=== PATIENT | female | born 1955 | race Caucasian/White ===

== ENCOUNTER 2020-06-17 22:07 | Inpatient (IN) | payer OTHER ==
[~2020-06-17] VITALS: Ht 167.6 cm; Wt 80.5 kg
[2020-06-17 23:17] LABS: Basophils # (auto) 0 10 ^3/uL (0-0.2); Eosinophils # (auto) 0.1 10 ^3/uL (0-0.8); Eosinophils % (auto) 0.5 % (0.0-7.0); Hematocrit 36.8 % (36.0-46.0); Hemoglobin 12.2 g/dL (12.2-16.2); Lymphocytes # (auto) 0.7 10 ^3/uL (0.4-5.4); Lymphocytes % (auto) 5.3 % (10.0-50.0); Mean Corpuscular Hemoglobin 28.9 pg (28.0-32.0); Mean Corpuscular Volume 87.4 fL (80.0-100.0); Monocytes # (auto) 1.1 10 ^3/uL (0-1.3); Monocytes % (auto) 8.2 % (0.0-12.0); Neutrophils # (auto) 11.4 10 ^3/uL (1.6-8.6); Nucleated Red Blood Cells % 0.3 %; Platelet Count (auto) 418 10^3/uL (140-450); Red Blood Cells 4.21 10^6/uL (4.0-5.20); Red Cell Distribution Width 14.4 % (11.8-14.3); White Blood Cell 13.3 10^3/uL (4.4-10.8)
[2020-06-17 23:36] LABS: Alanine Aminotransferase 15 U/L (13-56); Albumin 2.1 g/dL (3.4-5.0); Anion Gap 5 (5-15); Aspartate Aminotransferase 15 U/L (15-37); BUN/Creatinine Ratio 10.1; Blood Urea Nitrogen 8 mg/dL (7-18); Calcium 8.3 mg/dL (8.5-10.1); Carbon Dioxide 28 mmol/L (21-32); Chloride 101 mmol/L (98-107); GFR African American 94 mL/min; GFR Non-African American 78 mL/min; Glucose 105 mg/dL (74-106); INR 1.09 (0.9-1.15); Magnesium 2.2 mg/dL (1.6-2.6); Partial Thromboplastin Time 25.9 sec (23.0-31.2); Potassium 3.8 mmol/L (3.5-5.1); Sodium 134 mmol/L (136-145)
[2020-06-17 23:41] LABS: Alkaline Phosphatase 84 U/L (45-117); Bilirubin, Total 0.3 mg/dL (0.2-1.0)
[2020-06-18] MEDS ORDERED: DexAMETHasone SOD PHOS 10MG/1ML VIAL INJ IV ONE (00:15)
[2020-06-18] MEDS ORDERED: AZITHROMYCIN 500MG/ 250ML 250 ML IV ONE (00:15)
[2020-06-18 02:27] LABS: Urine Bacteria FEW /hpf (None Seen); Urine Blood Negative /uL (Negative); Urine Specific Gravity 1.029 (1.001-1.035); Urine WBC 1 /hpf (0 - 5)
[2020-06-18] MEDS ORDERED: ACETAMINOPHEN 325 MG TAB PO PRN (02:30)
[2020-06-18] MEDS ORDERED: ONDANSETRON HCL 4 MG/2 ML VIAL IV PRN (02:30)
[2020-06-18] MEDS ORDERED: MORPHINE SULF INJ 2 MG/ML SYRINGE 1ML IV PRN (02:30)
[2020-06-18] MEDS ORDERED: TEMAZEPAM 15 MG CAP PO PRN (02:30)
[2020-06-18] MEDS ORDERED: NITROGLYCERIN 0.4 MG SL TAB SL PRN (02:30)
[2020-06-18 04:34] LABS: CRP High Sensitivity 16.3 mg/dL (< 0.3)
[2020-06-18] MEDS: DexAMETHasone SOD PHOS 10MG/1ML VIAL INJ IV SCH (07:56)
[2020-06-18] MEDS: ASCORBIC ACID 1,000 MG TAB PO SCH (07:57)
[2020-06-18] MEDS: ZINC SULFATE 220mg CAP or TAB PO SCH (07:57)
[2020-06-18] MEDS: FAMOTIDINE 20 MG TAB PO SCH ×2 (07:57→23:00)
[2020-06-18] MEDS: CHOLECALCIFEROL (VITD3) 2,000 UNIT CAP PO SCH (07:57)
[2020-06-18] MEDS: ENOXAPARIN SOD 40 MG/0.4 ML SYRINGE SC SCH ×2 (07:57→23:00)
[2020-06-18] MEDS ORDERED: AZITHROMYCIN 500MG/ 250ML 250 ML IV SCH (10:00)
[2020-06-18] MEDS ORDERED: REMDESIVIR PER PHARMACY 0 ML IV SCH (11:15)
[2020-06-18] MEDS ORDERED: IVERMECTIN 3 MG TAB PO ONE (14:33)
[2020-06-18] MEDS ORDERED: ERGOCALCIFEROL 50,000 UNIT(1.25MG) CAP PO SCH (14:45)
[2020-06-18] MEDS ORDERED: CEFTRIAXONE SODIUM 2 GM in D5W 5% 50 ML IV ONE (14:45)
[2020-06-18] MEDS ORDERED: POTASSIUM CHL 10 Meq TABLET PO ONE (14:45)
[2020-06-18] MEDS ORDERED: FUROSEMIDE 40 MG/4 ML VIAL IV ONE (15:00)
[2020-06-18] MEDS ORDERED: REMDESIVIR 200 MG in NS 210ml LOADING DOSE ADULT IV ONE (15:00)
[2020-06-18 16:05] VITALS: BP 128/76
[2020-06-18 16:20] VITALS: BP 112/84
[2020-06-18 17:17] VITALS: BP 136/88
[2020-06-18 21:22] VITALS: BP 125/94
[2020-06-18] MEDS: BUDESONIDE (INHALATION) 180 MCG IH IN SCH (22:00)
[2020-06-19] VITALS: BP 125/94
[2020-06-19 06:47] LABS: Basophils # (auto) 0.2 10 ^3/uL (0-0.2); Basophils % (auto) 0.8 % (0.0-2.0); Eosinophils # (auto) 0 10 ^3/uL (0-0.8); Hematocrit 37.9 % (36.0-46.0); Hemoglobin 12.6 g/dL (12.2-16.2); Lymphocytes % (auto) 4.6 % (10.0-50.0); Mean Corpuscular Hemoglobin 29.1 pg (28.0-32.0); Mean Corpuscular Hgb Conc. 33.3 g/dL (32.0-36.0); Mean Corpuscular Volume 87.5 fL (80.0-100.0); Monocytes % (auto) 8.8 % (0.0-12.0); Neutrophils # (auto) 19.3 10 ^3/uL (1.6-8.6); Neutrophils % (auto) 85.8 % (37.0-80.0); Nucleated Red Blood Cells % 0.2 %; Platelet Count (auto) 438 10^3/uL (140-450); Red Blood Cells 4.33 10^6/uL (4.0-5.20); Red Cell Distribution Width 14.8 % (11.8-14.3); White Blood Cell 22.5 10^3/uL (4.4-10.8)
[2020-06-19 06:54] LABS: Calcium 8.8 mg/dL (8.5-10.1); Magnesium 2.6 mg/dL (1.6-2.6); Potassium 4.1 mmol/L (3.5-5.1)
[2020-06-19] MEDS: BUDESONIDE (INHALATION) 180 MCG IH IN SCH ×2 (06:58→22:00)
[2020-06-19 07:12] LABS: Albumin 2.2 g/dL (3.4-5.0); Bilirubin, Total 0.2 mg/dL (0.2-1.0); CRP High Sensitivity 16.7 mg/dL (< 0.3); Total Protein 7.7 g/dL (6.4-8.2)
[2020-06-19 08:00] VITALS: BP 131/77
[2020-06-19] MEDS ORDERED: IVERMECTIN 3 MG TAB PO SCH (10:00)
[2020-06-19] MEDS: cefTRIAXone 1GM/50ML D5W 50 ML IV SCH (10:07)
[2020-06-19] MEDS: FUROSEMIDE 40 MG/4 ML VIAL IV SCH (10:07)
[2020-06-19] MEDS: DexAMETHasone SOD PHOS 10MG/1ML VIAL INJ IV SCH (10:07)
[2020-06-19] MEDS: FAMOTIDINE 20 MG TAB PO SCH ×2 (10:08→21:23)
[2020-06-19] MEDS: POTASSIUM CHL 10 Meq TABLET PO SCH (10:08)
[2020-06-19] MEDS: ZINC SULFATE 220mg CAP or TAB PO SCH (10:08)
[2020-06-19] MEDS: CHOLECALCIFEROL (VITD3) 2,000 UNIT CAP PO SCH (10:09)
[2020-06-19] MEDS: ENOXAPARIN SOD 40 MG/0.4 ML SYRINGE SC SCH ×2 (10:09→21:23)
[2020-06-19] MEDS: ASCORBIC ACID 1,000 MG TAB PO SCH (10:09)
[2020-06-19] MEDS: AZITHROMYCIN 500MG/ 250ML 250 ML IV SCH (11:00)
[2020-06-19] MEDS: REMDESIVIR 100mg 100 MG in SODIUM CHL 0.9% 230 ML IV SCH (15:15)
[2020-06-19 16:00] VITALS: BP 118/76
[2020-06-20] VITALS: BP_SYST 134; BP_SYST 136; BP_DIAS 73; BP_DIAS 82
[2020-06-20 05:44] LABS: Basophils # (auto) 0 10 ^3/uL (0-0.2); Eosinophils # (auto) 0 10 ^3/uL (0-0.8); Eosinophils % (auto) 0.2 % (0.0-7.0); Hematocrit 37.2 % (36.0-46.0); Hemoglobin 12.2 g/dL (12.2-16.2); Lymphocytes # (auto) 1.1 10 ^3/uL (0.4-5.4); Lymphocytes % (auto) 7.2 % (10.0-50.0); Mean Corpuscular Hemoglobin 29.1 pg (28.0-32.0); Mean Corpuscular Hgb Conc. 32.9 g/dL (32.0-36.0); Mean Corpuscular Volume 88.5 fL (80.0-100.0); Monocytes # (auto) 1.4 10 ^3/uL (0-1.3); Neutrophils # (auto) 12.6 10 ^3/uL (1.6-8.6); Neutrophils % (auto) 83.6 % (37.0-80.0); Nucleated Red Blood Cells % 0.1 %; Platelet Count (auto) 403 10^3/uL (140-450); Red Cell Distribution Width 15.1 % (11.8-14.3); White Blood Cell 15.1 10^3/uL (4.4-10.8)
[2020-06-20 08:25] VITALS: BP 129/90
[2020-06-20] MEDS: BUDESONIDE (INHALATION) 180 MCG IH IN SCH ×2 (09:35→20:58)
[2020-06-20] MEDS: AZITHROMYCIN 500MG/ 250ML 250 ML IV SCH (10:00)
[2020-06-20] MEDS: cefTRIAXone 1GM/50ML D5W 50 ML IV SCH (10:21)
[2020-06-20] MEDS: ZINC SULFATE 220mg CAP or TAB PO SCH (10:21)
[2020-06-20] MEDS: FUROSEMIDE 40 MG/4 ML VIAL IV SCH (10:21)
[2020-06-20] MEDS: DexAMETHasone SOD PHOS 10MG/1ML VIAL INJ IV SCH (10:21)
[2020-06-20] MEDS: ENOXAPARIN SOD 40 MG/0.4 ML SYRINGE SC SCH ×2 (10:22→21:08)
[2020-06-20] MEDS: FAMOTIDINE 20 MG TAB PO SCH ×2 (10:22→21:07)
[2020-06-20] MEDS: CHOLECALCIFEROL (VITD3) 2,000 UNIT CAP PO SCH (10:22)
[2020-06-20] MEDS: ASCORBIC ACID 1,000 MG TAB PO SCH (10:22)
[2020-06-20] MEDS: POTASSIUM CHL 10 Meq TABLET PO SCH (10:22)
[2020-06-20] MEDS: REMDESIVIR 100mg 100 MG in SODIUM CHL 0.9% 230 ML IV SCH ×2 (15:36→16:25)
[2020-06-20 15:42] VITALS: BP 119/78
[2020-06-20] MEDS: ALBUTEROL SULF HFA 90MCG INH 200DOSE IN PRN (20:58)
[2020-06-20 22:00] VITALS: BP 134/73
[2020-06-21] VITALS: BP 134/73
[2020-06-21 06:10] VITALS: BP 134/73
[2020-06-21 06:38] LABS: Basophils # (auto) 0 10 ^3/uL (0-0.2); Basophils % (auto) 0.3 % (0.0-2.0); Eosinophils # (auto) 0 10 ^3/uL (0-0.8); Eosinophils % (auto) 0.2 % (0.0-7.0); Hematocrit 35.6 % (36.0-46.0); Hemoglobin 11.9 g/dL (12.2-16.2); Lymphocytes # (auto) 1.2 10 ^3/uL (0.4-5.4); Lymphocytes % (auto) 9.8 % (10.0-50.0); Mean Corpuscular Hemoglobin 29.3 pg (28.0-32.0); Mean Corpuscular Hgb Conc. 33.4 g/dL (32.0-36.0); Mean Corpuscular Volume 87.8 fL (80.0-100.0); Monocytes # (auto) 1.2 10 ^3/uL (0-1.3); Monocytes % (auto) 9.5 % (0.0-12.0); Neutrophils # (auto) 9.8 10 ^3/uL (1.6-8.6); Neutrophils % (auto) 80.2 % (37.0-80.0); Nucleated Red Blood Cells % 0.1 %; Platelet Count (auto) 411 10^3/uL (140-450); Red Blood Cells 4.06 10^6/uL (4.0-5.20); White Blood Cell 12.2 10^3/uL (4.4-10.8)
[2020-06-21 06:52] LABS: Potassium 4.6 mmol/L (3.5-5.1)
[2020-06-21 07:11] LABS: CRP High Sensitivity 5.06 mg/dL (< 0.3); Magnesium 2.5 mg/dL (1.6-2.6)
[2020-06-21 08:00] VITALS: BP 134/89
[2020-06-21] MEDS: BUDESONIDE (INHALATION) 180 MCG IH IN SCH ×2 (08:10→19:50)
[2020-06-21] MEDS: ALBUTEROL SULF HFA 90MCG INH 200DOSE IN PRN ×2 (08:10→19:50)
[2020-06-21 08:32] LABS: Calcium 8.4 mg/dL (8.5-10.1); Potassium 4.7 mmol/L (3.5-5.1)
[2020-06-21 08:35] LABS: BUN/Creatinine Ratio 23.4; Bilirubin, Total 0.2 mg/dL (0.2-1.0); Total Protein 6.6 g/dL (6.4-8.2)
[2020-06-21] MEDS: cefTRIAXone 1GM/50ML D5W 50 ML IV SCH (10:10)
[2020-06-21] MEDS: FAMOTIDINE 20 MG TAB PO SCH ×2 (10:10→22:50)
[2020-06-21] MEDS: POTASSIUM CHL 10 Meq TABLET PO SCH (10:10)
[2020-06-21] MEDS: DexAMETHasone SOD PHOS 10MG/1ML VIAL INJ IV SCH (10:10)
[2020-06-21] MEDS: FUROSEMIDE 40 MG/4 ML VIAL IV SCH (10:10)
[2020-06-21] MEDS: ZINC SULFATE 220mg CAP or TAB PO SCH (10:11)
[2020-06-21] MEDS: ENOXAPARIN SOD 40 MG/0.4 ML SYRINGE SC SCH ×2 (10:11→22:50)
[2020-06-21] MEDS: ASCORBIC ACID 1,000 MG TAB PO SCH (10:11)
[2020-06-21] MEDS: CHOLECALCIFEROL (VITD3) 2,000 UNIT CAP PO SCH (10:11)
[2020-06-21] MEDS: AZITHROMYCIN 500MG/ 250ML 250 ML IV SCH (10:30)
[2020-06-21 16:00] VITALS: BP 135/69
[2020-06-21] MEDS: REMDESIVIR 100mg 100 MG in SODIUM CHL 0.9% 230 ML IV SCH (16:14)
[2020-06-22] VITALS: BP 132/77
[2020-06-22 08:00] VITALS: BP 141/87
[2020-06-22 08:12] LABS: Basophils # (auto) 0.1 10 ^3/uL (0-0.2); Basophils % (auto) 0.5 % (0.0-2.0); Eosinophils # (auto) 0 10 ^3/uL (0-0.8); Eosinophils % (auto) 0.3 % (0.0-7.0); Hematocrit 35.6 % (36.0-46.0); Hemoglobin 11.9 g/dL (12.2-16.2); Lymphocytes # (auto) 1.2 10 ^3/uL (0.4-5.4); Lymphocytes % (auto) 9.9 % (10.0-50.0); Mean Corpuscular Hemoglobin 29.1 pg (28.0-32.0); Mean Corpuscular Hgb Conc. 33.4 g/dL (32.0-36.0); Mean Corpuscular Volume 87.2 fL (80.0-100.0); Monocytes # (auto) 1.1 10 ^3/uL (0-1.3); Monocytes % (auto) 9.1 % (0.0-12.0); Neutrophils # (auto) 9.6 10 ^3/uL (1.6-8.6); Neutrophils % (auto) 80.2 % (37.0-80.0); Nucleated Red Blood Cells % 0.1 %; Platelet Count (auto) 406 10^3/uL (140-450); Red Blood Cells 4.08 10^6/uL (4.0-5.20)
[2020-06-22 08:14] LABS: Albumin 2.2 g/dL (3.4-5.0); Calcium 8.4 mg/dL (8.5-10.1); Potassium 4.7 mmol/L (3.5-5.1)
[2020-06-22 08:25] LABS: BUN/Creatinine Ratio 31.4; Bilirubin, Total 0.1 mg/dL (0.2-1.0); CRP High Sensitivity 3.13 mg/dL (< 0.3); Total Protein 6.6 g/dL (6.4-8.2)
[2020-06-22] MEDS: BUDESONIDE (INHALATION) 180 MCG IH IN SCH (10:00)
[2020-06-22] MEDS: AZITHROMYCIN 500MG/ 250ML 250 ML IV SCH (11:00)
[2020-06-22] MEDS: DexAMETHasone SOD PHOS 10MG/1ML VIAL INJ IV SCH (11:31)
[2020-06-22] MEDS: cefTRIAXone 1GM/50ML D5W 50 ML IV SCH (11:31)
[2020-06-22] MEDS: FUROSEMIDE 40 MG/4 ML VIAL IV SCH (11:32)
[2020-06-22] MEDS: ZINC SULFATE 220mg CAP or TAB PO SCH (11:32)
[2020-06-22] MEDS: CHOLECALCIFEROL (VITD3) 2,000 UNIT CAP PO SCH (11:33)
[2020-06-22] MEDS: FAMOTIDINE 20 MG TAB PO SCH (11:33)
[2020-06-22] MEDS: ASCORBIC ACID 1,000 MG TAB PO SCH (11:33)
[2020-06-22] MEDS: ENOXAPARIN SOD 40 MG/0.4 ML SYRINGE SC SCH (11:34)
[2020-06-22] MEDS: POTASSIUM CHL 10 Meq TABLET PO SCH (11:34)
[2020-06-22] MEDS ORDERED: ASCO10003 PO (12:24)
[2020-06-22] MEDS ORDERED: BUDE2SUS3 IN (12:24)
[2020-06-22] MEDS ORDERED: LEVO750T8 PO (12:24)
[2020-06-22] MEDS ORDERED: ALBUAER3 IN (12:24)
[2020-06-22] MEDS ORDERED: DEX4T PO (12:24)
[2020-06-22] MEDS ORDERED: PANT40TA2 PO (12:24)
[2020-06-22] MEDS ORDERED: ZINC220T6 PO (12:24)
[2020-06-22] MEDS ORDERED: CHOL1CAP47 PO (12:24)
[2020-06-22] MEDS ORDERED: ASPI-378 PO (12:24)
[2020-06-22] MEDS: REMDESIVIR 100mg 100 MG in SODIUM CHL 0.9% 230 ML IV SCH (15:38)
[2020-06-22 16:00] VITALS: BP 115/78
[2020-06-22 16:44] VITALS: BP 115/78
== END 2020-06-22 19:03 | disposition home or self-care (01) | DRG 871 ==
LOC: EDBD 22:07 → ER 22:11 → TELE 22:12 → TELE-WESTW 06-18 21:17
PROVIDERS: ADMIT Nurse Practitioner; ATTEND Internal Medicine
PROC: XW033E5 Introduction of Remdesivir Anti-infective into Peripheral Vein, Percutaneous Approach, New Technology Group 5 (ICD-10-PCS; principal; 2020-06-18)
PROC: XW13325 Transfusion of Convalescent Plasma (Nonautologous) into Peripheral Vein, Percutaneous Approach, New Technology Group 5 (ICD-10-PCS; 2020-06-18)
DX: A41.89 Other specified sepsis (principal); U07.1 COVID-19; J12.82 Pneumonia due to coronavirus disease 2019; J96.01 Acute respiratory failure with hypoxia; J44.1 Chronic obstructive pulmonary disease with (acute) exacerbation; J44.0 Chronic obstructive pulmonary disease with (acute) lower respiratory infection; T38.0X5A Adverse effect of glucocorticoids and synthetic analogues, initial encounter; H90.3 Sensorineural hearing loss, bilateral; I10 Essential (primary) hypertension; E55.9 Vitamin D deficiency, unspecified; Z87.891 Personal history of nicotine dependence; Z68.26 Body mass index [BMI] 26.0-26.9, adult; Y92.89 Other specified places as the place of occurrence of the external cause; E88.09 Other disorders of plasma-protein metabolism, not elsewhere classified; D89.839 Cytokine release syndrome, grade unspecified
CPT/HCPCS: 36415; 51702; 71045; 71275; 80053; 80061; 81001; 82306; 82728; 83605; 83615; 83735; 83880; 84132; 84443; 84484; 85025; 85379; 85610; 85730; 86141; 86850; 86900; 86901; 87040; 87426; 93005; 94640; 96365; 96366; 96368; 96375; 97116; 97163; G0378; J0696; J1100; J7060

== ENCOUNTER 2021-03-29 21:26 | Emergency (ER) | payer OTHER ==
[~2021-03-29] VITALS: Ht 180.3 cm; Wt 114.5 kg
[~2021-03-29 21:26] MED LIST: ALBUAER3 IN; ASCO10003 PO; ASPI-378 PO; BUDE2SUS3 IN; CHOL1CAP47 PO; DEX4T PO; LEVO750T8 PO; PANT40TA2 PO; ZINC220T6 PO
[2021-03-29 21:30] VITALS: BP 134/71
[2021-03-29] MEDS ORDERED: cloNIDine HCL 0.1 MG TAB PO ONE (22:00)
== END 2021-03-29 23:20 | disposition home or self-care (01) ==
LOC: ER 21:26
DX: H60.91 Unspecified otitis externa, right ear (principal); R51.9 Headache, unspecified; M54.30 Sciatica, unspecified side; I10 Essential (primary) hypertension; Z90.89 Acquired absence of other organs; Z87.891 Personal history of nicotine dependence; Z79.82 Long term (current) use of aspirin; Z79.2 Long term (current) use of antibiotics; Z79.899 Other long term (current) drug therapy; Z88.1 Allergy status to other antibiotic agents; Z88.2 Allergy status to sulfonamides
CPT/HCPCS: 70450

== ENCOUNTER 2021-12-01 07:10 | Emergency (ER) | payer OTHER ==
[~2021-12-01] VITALS: Ht 170.2 cm; Wt 76.7 kg
[2021-12-01] MEDS ORDERED: cloNIDine HCL 0.1 MG TAB PO ONE (08:00)
[2021-12-01 09:09] LABS: Urine WBC None Seen /hpf (0 - 5)
[2021-12-01 09:18] LABS: Basophils # (auto) 0.1 10 ^3/uL (0-0.2); Basophils % (auto) 1.3 % (0.0-2.0); Eosinophils # (auto) 0.2 10 ^3/uL (0-0.8); Eosinophils % (auto) 3.3 % (0.0-7.0); Hematocrit 45.3 % (36.0-46.0); Hemoglobin 14.5 g/dL (12.2-16.2); Lymphocytes # (auto) 1.9 10 ^3/uL (0.4-5.4); Lymphocytes % (auto) 34.8 % (10.0-50.0); Mean Corpuscular Hemoglobin 28.8 pg (28.0-32.0); Mean Corpuscular Volume 89.8 fL (80.0-100.0); Monocytes # (auto) 0.5 10 ^3/uL (0-1.3); Monocytes % (auto) 9.3 % (0.0-12.0); Neutrophils # (auto) 2.8 10 ^3/uL (1.6-8.6); Neutrophils % (auto) 51.3 % (37.0-80.0); Nucleated Red Blood Cells % 0.1 %; Red Blood Cells 5.05 10^6/uL (4.0-5.20); Red Cell Distribution Width 14.9 % (11.8-14.3); White Blood Cell 5.4 10^3/uL (4.4-10.8)
[2021-12-01 09:20] LABS: Urine Bacteria NONE SEEN /hpf (None Seen); Urine Blood Negative /uL (Negative); Urine Specific Gravity 1.006 (1.001-1.035)
[2021-12-01 09:33] LABS: Albumin 3.7 g/dL (3.4-5.0); Calcium 8.9 mg/dL (8.5-10.1); Potassium 4.2 mmol/L (3.5-5.1)
[2021-12-01 09:37] LABS: BUN/Creatinine Ratio 11.3; Bilirubin, Total 0.3 mg/dL (0.2-1.0); Total Protein 7.5 g/dL (6.4-8.2)
[2021-12-01] MEDS ORDERED: TRAM-297 PO (09:44)
[2021-12-01 09:50] VITALS: BP 98/62
== END 2021-12-01 09:55 | disposition home or self-care (01) ==
LOC: ER 07:10
DX: M54.2 Cervicalgia (principal); M79.18 Myalgia, other site; I16.0 Hypertensive urgency
CPT/HCPCS: 36415; 70450; 71045; 72125; 80053; 81001; 84484; 85025; 93005

== ENCOUNTER 2021-12-20 22:22 | Emergency (ER) | payer OTHER ==
[~2021-12-20] VITALS: Ht 170.2 cm; Wt 77.0 kg
[~2021-12-20 22:22] MED LIST changes: +TRAM-297 PO
[2021-12-20 23:31] VITALS: BP 142/87
== END 2021-12-21 | disposition left against medical advice (07) ==
LOC: ER 22:22
DX: M25.511 Pain in right shoulder (principal); R20.2 Paresthesia of skin; Z53.21 Procedure and treatment not carried out due to patient leaving prior to being seen by health care provider